=== PATIENT | male | born 1950 | race Caucasian/White ===

== ENCOUNTER 2025-05-21 05:38 | Inpatient (IN) ==
--- NOTE | 2025-04-29 12:04 | PAT Medication Instructions ---
Medication Instructions Date of Service April 29, 2025 Home Medications Vitamin D3 + K2 125 mg PO QAM biotin 5 mg capsule 5 mg PO QAM calcium citrate 630 mg PO QAM coQ10 (ubiquinol) 100 mg capsule 160 mg PO QAM hydrochlorothiazide 12.5 mg tablet 12.5 mg PO QAM krill oil 500 mg capsule 250 mg PO QAM magnesium 250 mg tablet 250 mg PO QAM risedronate 150 mg tablet 150 mg PO MONTHLY vitamin B complex 1 cap PO QAM ASK your surgeon for instructions risedronate 150 mg tablet 150 mg PO MONTHLY STOP taking 2 weeks before surgery (or as soon as possible if surgery is within 2 weeks) Vitamin D3 + K2 125 mg PO QAM biotin 5 mg capsule 5 mg PO QAM coQ10 (ubiquinol) 100 mg capsule 160 mg PO QAM krill oil 500 mg capsule 250 mg PO QAM DO NOT take the morning of surgery calcium citrate 630 mg PO QAM hydrochlorothiazide 12.5 mg tablet 12.5 mg PO QAM magnesium 250 mg tablet 250 mg PO QAM vitamin B complex 1 cap PO QAM MORNING OF SURGERY: NOTHING TO EAT OR DRINK AFTER MIDNIGHT Other Notes If you have any questions please call us at [phone] or [phone] or [phone] or [phone]
--- NOTE | 2025-04-30 11:33 | Anesthesiology Consultation ---
Date of Service April 30, 2025 Assessment & Plan (1) Encounter for pre-operative examination: - Infectious disease screening: Per assessment on 04/30/25- No known recent infectious disease contacts or current infectious disease symptoms. - Outpatient joint assessment: Pt currently scheduled for inpatient pathway. If surgeon requests review for outpatient joint pathway, patient is not recommended candidate for outpatient joint program from anesthesia standpoint based on available information. - Abnormal Preop CXR: Done 04/30/25. CXR notes "moderate cardiomegaly with mild pulmonary vascular congestion." Note written to PCP regarding preop CXR > Awaiting CXR response + surgeon-ordered PCP clearance (Dr. Mireles). Patient is otherwise acceptable risk for surgery. Chart Review Chart Review: Patient seen in Pre Admission Testing Teaching & Discussion Pre-Anesthesia Teaching/Discussion Notes: Instructed NPO after midnight before surgery,except medications with 15 cc of water. Medication instructions provided according to the PAT guidelines. History Surgery Operation Date: 05/21/25 13:20 Proposed Procedures p Right Total Knee Arthroplasty - Miguel Samuel MD Height/Weight Height: 5 ft 6 in Weight: 86.2 kg Allergies Allergy/AdvReac Type Severity Reaction Status Date / Time alendronate sodium AdvReac Jaw pain Verified 04/30/25 14:06 [From Fosamax] doxycycline AdvReac Dizziness Verified 04/30/25 14:05 Medications Home Medications Medication Instructions Recorded Confirmed Last Taken Vitamin D3 + K2 125 mg PO QAM 04/29/25 04/29/25 Unknown biotin 5 mg capsule 5 mg PO QAM 04/29/25 04/29/25 Unknown calcium citrate 630 mg PO QAM 04/29/25 04/29/25 Unknown coQ10 (ubiquinol) 100 mg capsule 160 mg PO QAM 04/29/25 04/29/25 Unknown hydrochlorothiazide 12.5 mg tablet 12.5 mg PO QAM 04/29/25 04/29/25 Unknown krill oil 500 mg capsule 250 mg PO QAM 04/29/25 04/29/25 Unknown magnesium 250 mg tablet 250 mg PO QAM 04/29/25 04/29/25 Unknown risedronate 150 mg tablet 150 mg PO MONTHLY 04/29/25 04/29/25 Unknown vitamin B complex 1 cap PO QAM 04/29/25 04/29/25 Unknown Past Medical History Medical History 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 History of acoustic neuroma s/p surgery ~1998; no current issues History of mai b/l LE; result of accident (1979); no surgeries; no current issues Osteoarthritis Osteopenia Prostate cancer surveillance at this time Exercise / Class Metabolic Activity II 4-5 Yardwork/Stairs/Walk up hill (one FS: No CP, no SOB) Past Family History Family History Other No family history of adverse response to anesthesia Past Surgical History Surgical History H/O brain surgery acoustic neuroma ~1998 H/O elbow surgery Left; plate and screws placed History of bunionectomy R History of colonoscopy Past Anesthesia History No Hx of Anesthesia Complications and No Family Hx of Anesthesia Complications History of PONV No Hx of PONV and No Hx of Motion Sickness Social History Smoking Status: Never smoker Do You Dip or Chew Tobacco: No Hx Alcohol Use: Yes Alcohol type: wine and hard liquor alcohol intake frequency: a few times a month Hx Substance Use: No Review of Systems Patient denies chest pain, shortness of breath, dyspnea on exertion, fever, chills, cough, wheezing. Physical Exam Vital Signs BP101/50 P 69 TEMP 97.6 SP02 95%RA RESP 16 Physical Full cervical extension range of motion. Full TMJ range of motion. TMD 3 finger breaths Mallampati Score II Dentition: intact, + cap Lungs: clear throughout to auscultation Cardiac: regular rate and rhythm, no murmurs noted Spine: normal Carotid arteries: negative bruit Extremities: no LE edema Lab Results Anesthesia Preop Results Results Anesthesia Widget: WBC 7.77 K/ul (4.8-10.8) 04/30/25 Hgb 16.6 g/dl (14.0-18.0) 04/30/25 Hct 47.2 % (42.0-52.0) 04/30/25 Plt 192 K/uL (130-400) 04/30/25 Na 137 mmol/L (136-145) 04/30/25 K 3.9 mmol/L (3.5-5.1) 04/30/25 Cl 101 mmol/L (98-107) 04/30/25 CO2 31 mmol/L (21-32) 04/30/25 BUN 25 mg/dl (6-23) H 04/30/25 Creat 1.00 mg/dl (0.6-1.4) 04/30/25 Glucose Level 113 mg/dl (70-99(Fasting)) H 04/30/25 PT 10.7 Seconds (9.0-12.0) 04/30/25 PTT 27 Seconds (21-31) 04/30/25 INR 1.0 (0.9-1.1) 04/30/25 Urine Color Yellow 04/30/25 Urine Appearance Clear (Clear) 04/30/25 Urine pH 5.0 (4.5-7.5) 04/30/25 Urine Specific [place] 1.021 (1.000-1.030) 04/30/25 Urine Protein Negative (Negative) 04/30/25 Urine Glucose (UA) Negative (Negative) 04/30/25 Urine Ketones Negative (Negative) 04/30/25 Urine Blood Negative (Negative) 04/30/25 Urine Nitrite Negative (Negative) 04/30/25 Urine Bilirubin Negative (Negative) 04/30/25 Urine Urobilinogen Negative (Negative) 04/30/25 Urine Leukocyte Esterase Trace (Negative) H 04/30/25 Urine WBC (Auto) 0-5 /hpf (0-5) 04/30/25 Urine RBC (Auto) 0-2 /hpf (0-2) 04/30/25 Urine Hyaline Casts (Auto) 0-2 /lpf (0-2) 04/30/25 Urine Epithelial Cells (Auto) 0-2 /hpf (0-2) 04/30/25 Urine Bacteria (Auto) None Seen (None Seen) 04/30/25 Blood Type A Positive 04/30/25 Antibody Screen NEGATIVE 04/30/25 Testing Electrocardiogram Date: 04/22/25 SR at 72bpm. Low voltage in precordial leads. RSR (V1)- nondiagnostic. Chest X-Ray Date: 04/30/25 FINDINGS: There is moderate cardiomegaly with mild pulmonary vascular congestion. No consolidation or pleural effusion. IMPRESSION: Mild CHF.
--- NOTE | 2025-05-19 19:26 | History & Physical Report ---
Date of Service May 19, 2025 Assessment & Plan (1) Osteoarthritis of right knee: Plan: Right knee osteoarthritis end-stage lateral compartment with bone loss. Plan is for right total knee arthroplasty with Hulafrog PSI CT cutting guides. Probable stemmed tibial component possible constrained polyethylene. Osteoarthritis type: primary Qualified Code(s): M17.11 - Unilateral primary osteoarthritis, right knee History of Present Illness Chief Complaint: Chronic right knee pain Primary Care Provider: NO PCP 74-year-old male with chronic right knee pain failed conservative management. Patient denies headaches, sweats, fevers, chills, double vision, blurred vision, cough, sore throat, dysphagia, chest pain, sob, wheezing, n/v/d/c, numbness, tingling, fatigue, urinary symptoms, mood disorders. ROS positive for use of CPAP, osteoarthritis including stiffness and low back pain, prostate cancer. Allergies Allergy/AdvReac Type Severity Reaction Status Date / Time alendronate sodium AdvReac Jaw pain Verified 04/30/25 14:06 [From Fosamax] doxycycline AdvReac Dizziness Verified 04/30/25 14:05 Home Medications Medication Instructions Recorded Confirmed Type Vitamin D3 + K2 125 mg PO QAM 04/29/25 04/29/25 History biotin 5 mg capsule 5 mg PO QAM 04/29/25 04/29/25 History calcium citrate 630 mg PO QAM 04/29/25 04/29/25 History coQ10 (ubiquinol) 100 mg capsule 160 mg PO QAM 04/29/25 04/29/25 History hydrochlorothiazide 12.5 mg tablet 12.5 mg PO QAM 04/29/25 04/29/25 History krill oil 500 mg capsule 250 mg PO QAM 04/29/25 04/29/25 History magnesium 250 mg tablet 250 mg PO QAM 04/29/25 04/29/25 History risedronate 150 mg tablet 150 mg PO MONTHLY 04/29/25 04/29/25 History vitamin B complex 1 cap PO QAM 04/29/25 04/29/25 History Past Med/Surg History Problem List (Updated 05/19/25 @ 19:24 by Miguel Samuel MD) Osteoarthritis of right knee Encounter for pre-operative examination Medical History History of mai b/l LE; result of accident (1979); no surgeries; no current issues Prostate cancer surveillance at this time 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 History of acoustic neuroma s/p surgery ~1998; no current issues Osteoarthritis Osteopenia Surgical History History of bunionectomy R History of colonoscopy H/O elbow surgery Left; plate and screws placed H/O brain surgery acoustic neuroma ~1998 Family History Other No family history of adverse response to anesthesia Social History Smoking Status: Never smoker Second Hand Exposure: No; Do You Dip or Chew Tobacco: No; Tobacco Cessation Education Requested by Patient: No Hx Alcohol Use: Yes Alcohol type: wine and hard liquor Hx Substance Use: No Preferred Language: Pakistani Communication Ability: Effective Hand Box Coverer Required: No Beliefs That Will Affect Care: None Current Living Situation: Spouse Other Information That Helps Us Care for You: No Feels Safe at Home: Yes Safety Concerns: Feels Safe At This Time Assistive Devices: CPAP and Glasses Review of Systems All systems reviewed & are unremarkable except as noted in HPI & below Physical Exam Constitutional: WD/WN, vitals as above Respiratory: normal respiratory effort; no respiratory distress Cardiovascular: Rate/Rhythm: regular rate and regular rhythm Musculoskeletal: Right knee with 0 to 90 degrees of active range of motion with a valgus knee lateral joint line tenderness and crepitation. Distal circulation sensory motor exam intact. Antalgic gait no assistive device. Skin: no rashes, warm and dry Neurologic: normal touch/pain/proprioception Psychiatric: A+Ox3, euthymic affect Results & Data Diagnostic Findings Radiographs demonstrate severe right knee osteoarthritis with bone loss in the lateral compartment
[2025-05-21] MEDS: LR 60ML/HR IV SCH (06:19)
[2025-05-21] MEDS: LR 500ML BOLUS, THEN 15ML/HR IV SCH (06:20)
[2025-05-21] MEDS: ACETAMINOPHEN 500 MG TAB PO SCH ×2 (06:22→13:55)
[2025-05-21] MEDS: METOCLOPRAMIDE HCL 10 MG TABLET PO SCH (06:23)
[2025-05-21] MEDS: FAMOTIDINE 20 MG TAB PO SCH (06:23)
[2025-05-21] MEDS: GABAPENTIN 300 MG CAP PO SCH (06:23)
[2025-05-21] MEDS: CeleBREX 200 MG CAP PO SCH (06:23)
[2025-05-21] MEDS ORDERED: ROPIVACAINE 0.5% 5 MG/ML 30 ML VIAL ONE (06:25)
[2025-05-21] MEDS: dexAMETHasone**PF** 10 MG/ML VIAL IV SCH (06:25)
[2025-05-21] MEDS ORDERED: BUPIVACAINE 0.5 % 5 MG/1 ML PF 10ML VIAL ONE (06:25)
[2025-05-21] MEDS ORDERED: MIDAZOLAM HCL 1 MG/ML 2ML VIAL ONE (06:29)
[2025-05-21] MEDS ORDERED: ONDANSETRON INJ 2 MG/ML 2 ML VIAL IV PRN ×2 (06:48→11:39)
[2025-05-21] MEDS ORDERED: ATROPINE SULFATE 0.1 MG/ML 10ML SYR IV PRN (06:48)
[2025-05-21] MEDS ORDERED: ONDANSETRON INJ 2 MG/ML 2 ML VIAL ONE (06:57)
[2025-05-21] MEDS ORDERED: PROPOFOL IV EMULSION 10 MG/ML 20 ML VIAL IV ONE ×3 (06:57→09:59)
[2025-05-21] MEDS: TRANEXAMIC ACID 1,000 MG **IV Pre-op IV SCH (07:09)
--- NOTE | 2025-05-21 07:10 | History & Physical Bridge Note ---
Date of Service May 21, 2025 History & Physical Bridge Note I have examined the patient, reviewed the History & Physical and in the interval since the performance of the History & Physical I have noted the following changes of clinical significance: no changes noted
[2025-05-21] MEDS ORDERED: PHENYLEPHRINE 100MCG/ML 5ML SYR ONE (07:35)
[2025-05-21] MEDS: ROPIVACAINE 0.5% HCL/PF 246 MG, Ketorolac (*for OR use only*) 30 MG in SODIUM CHLORIDE ... INFIL SCH (07:57)
[2025-05-21] MEDS: ORTHO JOINT ANESTHETIC ONE (07:57)
[2025-05-21] MEDS ORDERED: ePHEDrine sulfate 50 MG/5 ML SYR ONE (08:43)
--- NOTE | 2025-05-21 10:39 | Post Operative Brief Note ---
Immediate Post Op Note Date of Surgery May 21, 2025 Pre & Post Diagnosis Operation Date: 05/21/25 07:15 Pre-Op Diagnosis: Right Knee Degenerative Joint Disease Post-Op Diagnosis: Right Knee Degenerative Joint Disease I identified the patient and participated in the time-out.: Yes Procedure Operation Date: 05/21/25 07:15 Actual Procedures p Right Total Knee Arthroplasty(Right), el and Acticoat superficial wound VAC application- Miguel Samuel MD Surgeon Miguel Samuel MD Teachers Assistant David WALLS Estimated Blood Loss 50 Findings Consistent with Post-Op Diagnosis Specimens Bone cuts Drains Hemovac Drain Anesthesia Type MAC Spinal Regional Disposition Disposition: Recovery Room Overlapping Procedure I was immediately available: during the entire case.
--- NOTE | 2025-05-21 10:59 | Operative Report ---
Post Operative Report Pre & Post Diagnosis Operation Date: 05/21/25 07:15 Pre-Op Diagnosis: Right Knee Degenerative Joint Disease, osteoarthritis Post-Op Diagnosis: Right Knee Degenerative Joint Disease, osteoarthritis I identified the patient and participated in the time-out.: Yes Procedure Operation Date: 05/21/25 07:15 Actual Procedures p Right Total Knee Arthroplasty(Right), application of el and Acticoat superficial wound VAC- Miguel Samuel MD Surgeon Miguel Samuel MD Agriculture Department Chair David WALLS Estimated Blood Loss 50 Findings Consistent with Post-Op Diagnosis Specimens Bone cuts Drains 2 Hemovac Anesthesia Type MAC Spinal Regional Complications none Disposition Disposition: Recovery Room Indications 74 male with chronic right knee osteoarthritis with valgus deformity and bone loss lateral compartment [id number] femoral and tibial side with medial collateral ligament laxity. Description of Procedure Patient taken to the operating room the size under spinal MAC regional block anesthesia. Patient was placed supine on the operating table. A pneumatic tourniquet was placed about the right upper thigh. The right lower extremity was prepped and draped in sterile fashion. Knee exam demonstrated valgus alignment and at least 20 degrees with medial collateral ligament laxity with valgus stress and no pseudolaxity with varus stress with no AP instability and a large effusion with no flexion contracture and flexion to 95 degrees. The right leg was elevated exsanguinated with an Esmarch bandage and pneumatic tourniquet was raised to 300 millimeters of mercury. Skin incised sharply in longitudinal fashion. Subcutaneous flaps elevated. Incision was made through the medial retinaculum extending up in the mid third of the quadriceps tendon and down to the medial tibial tubercle. Intra-articular findings demonstrated severe osteoarthritis in the lateral compartment and moderately severe in the patellofemoral joint with bone loss on the femoral condyle and tibial plateau with eburnated bone and grade 3 patellofemoral osteoarthritis with patellofemoral osteophytes. The Arkamin total knee arthroplasty system was used. To expose the knee the infrapatellar fat pad was resected. The meniscal remnants and cruciate ligaments were resected. The anterior fat pad over the femur in the area of the location of the anterior flange of the femoral component was resected. The lateral synovial bands were released. The femur was exposed. The custom CT scan generated PSI guide was placed over the femur and appropriately adjusted position with good fit. It was pinned in position. The distal femoral cut was made in the drill holes in the femoral condyles for the guide were placed in the appropriate external rotation matching the epicondylar axis. The distal femoral cut was made with the oscillating saw. The 4-in-1 cutting block was adjusted for external rotation pinned in position and the anterior posterior and chamfer cuts were made. The knee was extended and a subperiosteal peel lateral release was performed around the patella. Patella width was measured and width was reproduced using a freehand cut technique and a asymmetric 35 mm patella component. The 3 drill holes were made. Trial implant fit appropriately. The CT generated tibial cutting guide was positioned and the alignment anibal was appropriate and after pinning this position the cut was made. A lamina alkylation operator was used and the flexion extension gaps were addressed.. Lateral capsular IT band off the tibia popliteus tendon release and resection of the fibular collateral ligament releases were all required. All posterior osteophytes removed. All meniscal remnants were resected. The tibia CT guide for the drill and punch was positioned and placed in maximal external rotation and pinned in position. The drill and punch for stem was used. The femoral CT fabricated size 6 femoral trial was positioned on the femur with a good fit centered and the femoral notch cut was made. Drill holes for the pegs were performed. Trial tibial inserts were placed and I felt initially that a size 13 gave appropriate balance through full motion but there is still some laxity medially which I felt could be corrected with that TS constrained component. Patella tracking was assessed. The patella tracked centrally.. The trial components were then removed and the orthomix anesthetic cocktail was injected per protocol. The knee was then copiously irrigated with pulsatile lavage saline solution. Final components were then cemented with Refobacin cement. Xperience irrigation placed over metal compoments prior to polyethylene insertion. Final components were triathlon size 6 right posterior stabilized femoral component with fixation pegs and a size 5 universal tibial baseplate with a 12 mm diameter 50 mm length cemented stem and a 35 mm X.3 polyethylene asymmetrical patella. I tried to get the tibial polyethylene in place for I was having some difficulty so we displaced a trial in position and allowed the cement to cure fully with the knee in extension.. After the cement cured further pulsatile lavage irrigation was then performed with Xperience. We assessed the tibial polyethylene and there was some thinning of the fixation wire so this was not able to be used and we did another trial and it was felt that we could upsized to a 16 still with full extension with no hyperextension and full flexion with good stability so we went ahead and inserted the size 16 mm thick 5 TS X.3 polyethylene tibial insert. The stabilization bar was placed into the stem. The knee was taken through range of motion was full extension and flexion to 130 degrees and no instability through full range of motion and the patella tracked centrally. The tourniquet was let down and hemostasis obtained electrocautery and 2 Hemovac drains were brought out laterally. Further irrigation was Xperience performed. The quadriceps tendon and medial retinaculum were closed with #2 FiberWire [id number] sutures along the medial retinaculum medial side of the patella and distal quadriceps tendon and an additional [id number] suture at the apex of the quadriceps tendon split proximally and an additional [id number] suture at the level of the tibial polyethylene in the patella tendon. a 0 running locking STRATAFIX suture was placed starting at the proximal split in the quadriceps tendon extending down to the inferior pole the patella and then below that level [id number] #1 Yonas ryl sutures were utilized to repair the medial retinaculum to the patella tendon. The knee was taken through full range of motion and the repair was secure. Knee range of motion was 0 to 130 degrees. The subcutaneous tissues were closed with 2-0 Vicryl sutures. Skin was closed with surgical pieter. A el and Acticoat superficial wound VAC was applied. The patient tolerated the procedure well. David WALLS was my physician rehabilitation assistant who participated as heel sprayer first and was involved in all aspects of the procedure including patient positioning prepping and draping,leg positioning ,soft tissue retraction and instrument management and participated in the closing and application of superficial wound VAC and will participate in postoperative care of the patient. The patient tolerated the procedure well. I attest to the content of the Intraoperative Record and any orders documented therein. Any exceptions are noted below.
--- NOTE | 2025-05-21 11:15 | XRay Report ---
XR knee RT 1 or 2V routine CLINICAL HISTORY: Surgical Post Op COMPARISON: None FINDINGS: Right knee prosthesis shows no hardware complication. There is expected soft tissue gas. P ostoperative drain is present. Skin pieter are present. IMPRESSION: Unremarkable postoperative exam. ACT 112: Negative or not required by law. Electronically signed by: Nas Bhatt M.D. 05/21/2025 11:14 AM
--- NOTE | 2025-05-21 11:33 | Anesthesiology Progress Note ---
Date of Service May 21, 2025 Anesthesia Post Procedure Vital Signs Vital Signs: Temp Pulse Pulse Resp BP Pulse Ox O2 Del Method 05/21/25 11:15 86 16 116/71 96 Room Air 05/21/25 11:00 88 13 110/71 94 Room Air 05/21/25 10:50 97.7 F 85 13 101/62 96 Room Air 05/21/25 10:40 89 17 107/70 94 Room Air 05/21/25 10:32 97.0 F L 93 H 18 93/63 L 95 Nasal Cannula 05/21/25 05:47 98.1 F 68 18 129/82 97 Room Air O2 Flow Rate 05/21/25 11:15 2 05/21/25 11:00 2 05/21/25 10:50 2 05/21/25 10:40 2 05/21/25 10:32 2 05/21/25 05:47 Pain Intensity Right Knee: Pain Intensity: 4 Transfer of Care Handoff Completed per policy Notes Mental Status: alert / awake / arousable and participated in evaluation Patient Amnestic to Procedure: Yes Nausea / Vomiting: adequately controlled Pain: adequately controlled Airway Patency, RR, SpO2: stable & adequate BP & HR: stable & adequate Hydration State: stable & adequate Neuraxial Anesthesia: was administered and sensory block is resolving Anesthetic Complications: no major complications apparent and Pt Satisfied with anesthetic care
[2025-05-21] MEDS ORDERED: METOCLOPRAMIDE HCL INJ 5 MG/ML 2 ML VIAL IV PRN (11:39)
[2025-05-21] MEDS ORDERED: diphenhydrAMINE Capsule 25 MG CAP PO PRN (11:39)
[2025-05-21] MEDS ORDERED: RISEDRONATE 150 MG PO SCH (11:39)
[2025-05-21] MEDS ORDERED: NALOXONE HCL 0.4 MG/1 ML VIAL/CARP IV PRN (11:39)
[2025-05-21] MEDS ORDERED: MAGNESIUM HYDROXIDE SUSP 30 ML UDC PO PRN (11:39)
[2025-05-21] MEDS ORDERED: HYDROmorphone INJ 0.5 MG/0.5 ML SYR IV PRN (11:39)
[2025-05-21] MEDS ORDERED: TAMSULOSIN HCL 0.4 MG CAP PO PRN (11:39)
[2025-05-21] MEDS ORDERED: ALUMINUM/MAGNESIUM SUSP 30 ML UDC PO PRN (11:39)
[2025-05-21] MEDS: SODIUM CHLORIDE 0.9% 1,000 ML IV SCH (12:08)
--- NOTE | 2025-05-21 13:30 | Hospitalist Consultation ---
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 He presented for right total knee arthroplasty with Dr. Samuel on 05/21/2025. EBL 50 cc and there were no complications noted. #Right knee osteoarthritis - s/p right total knee arthroplasty - Pain control, DVT prophylaxis, activity level, discharge planning per primary team - Requiring some supplemental O2 postoperatively - likely from anesth esia/atelectasis. Encourage incentive spirometer Q1HWA - Mild tachycardia - EKG obtained and showed NSR with occasional PVCs - Follow CBC and BMP with a.m. labs #LE swellingcontinue HCTZ 12.5 mg daily #OSACPAP HS #Hypomagnesemiacontinue magnesium oxide supplementation daily #Osteopeniacontinue vitamin D3, continue risedronate outpatient #Essential tremor-no acute issues, does not take medication but has propranolol at home as needed which he has never used Hospital medicine will continue to follow. Please reach out with any questions or concerns. Reviewed outpatient records Updated and daughter at bedside Supervising Physician Co-Signing Physician Notes PA Supervision Note: I personally saw and examined the patient. I verified all enamorado points and agree with TITI Mora with the following exceptions and/or additions: S-patient here recovering from a right TKA. He denies palpitations but was noted to have a high heart rate earlier by nursing staff and had an ECG which showed sinus rhythm with frequent PACs. He has minimal pain as he had a spinal anesthesia. Denies chest pains or shortness of breath, he does have an essential tremor but does not take his as needed propranolol History and ROS otherwise reviewed as above O- Vitals reviewed Gen: AAOx3, NAD HEENT: Anicteric sclerae, EOMI CV: RRR with occasional ectopy no mgr nl S1S2 Pulm: CTAB no wcr Abd: +BS soft NT ND no masses or hernias Ext: RLE with dressing and ice pack in place Skin: No rashes, warm/dry Neuro: Full strength throughout A/K-77-rn[age]-old male with right TKA, admitted for postop observation. 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 He presented for right total knee arthroplasty with Dr. Samuel on 05/21/2025. Per review of operative report, EBL was listed as 50 cc, and there were no complications noted. Per review of patient's vitals postop, he has been mildly tachycardic in the [id number] and requiring some supplemental O2; vitals otherwise stable. Patient reports that his pain is 3/10 at time of consult. He reports he is eating and drinking okay since the procedure, and has no new complaints at this time. He denies headache, dizziness, chest pain, heart palpitations, shortness of breath, abdominal pain, nausea, urinary symptoms, paresthesias. He does not use supplemental oxygen at baseline, but does wear CPAP at night. Allergies Allergy/AdvReac Type Severity Reaction Status Date / Time alendronate sodium AdvReac Jaw pain Verified 05/21/25 05:37 [From Fosamax] doxycycline AdvReac Dizziness Verified 05/21/25 05:37 Home Medications Medication Instructions Recorded Confirmed Type Vitamin D3 + K2 125 mg PO QAM 04/29/25 05/21/25 History biotin 5 mg capsule 5 mg PO QAM 04/29/25 05/21/25 History calcium citrate 630 mg PO QAM 04/29/25 05/21/25 History coQ10 (ubiquinol) 100 mg capsule 160 mg PO QAM 04/29/25 05/21/25 History hydrochlorothiazide 12.5 mg tablet 12.5 mg PO QAM 04/29/25 05/21/25 History krill oil 500 mg capsule 250 mg PO QAM 04/29/25 05/21/25 History magnesium 250 mg tablet 250 mg PO QAM 04/29/25 05/21/25 History risedronate 150 mg tablet 150 mg PO MONTHLY 04/29/25 05/21/25 History vitamin B complex 1 cap PO QAM 04/29/25 05/21/25 History acetaminophen 500 mg tablet 1,000 mg (2 x 500 mg) PO Q8H #90 05/21/25 Rx (Tylenol Extra Strength) tabs aspirin 81 mg tablet,delayed 81 mg PO BID #60 tabs 05/21/25 Rx release cefadroxil 500 mg capsule 500 mg PO Q12H #28 caps 05/21/25 Rx celecoxib 200 mg capsule (Celebrex) 200 mg PO Q12H #60 caps 05/21/25 Rx oxycodone 5 mg tablet 5 mg PO Q4H PRN pain #30 tabs 05/21/25 Rx Patient History Medical History History of mai b/l LE; result of accident (1979); no surgeries; no current issues Prostate cancer surveillance at this time 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 History of acoustic neuroma s/p surgery ~1998; no current issues Osteoarthritis Osteopenia Surgical History History of bunionectomy R History of colonoscopy H/O elbow surgery Left; plate and screws placed H/O brain surgery acoustic neuroma ~1998 Family History Other No family history of adverse response to anesthesia Social History Smoking Status: Never smoker Second Hand Exposure: No; Do You Dip or Chew Tobacco: No; Tobacco Cessation Education Requested by Patient: No Hx Alcohol Use: Yes Alcohol type: wine and hard liquor Hx Substance Use: No Preferred Language: [place]an Communication Ability: Effective [employer]. [employer] Required: No Beliefs That Will Affect Care: None Current Living Situation: Spouse Other Information That Helps Us Care for You: No Feels Safe at Home: Yes Safety Concerns: Feels Safe At This Time Assistive Devices: Cane, CPAP and Walker Review of Systems Review of Systems: All systems reviewed & are unremarkable except as noted in Subjective Physical Exam Physical Exam: General: No acute distress, nondiaphoretic, well-developed, well-nourished. Skin: The skin was without rashes, erythema, edema, or bruising. Cardiac: Regular rate and rhythm without murmurs gallops or rubs. Pulm: Clear to auscultation bilaterally without wheezes, rales or rhonchi. No retractions or accessory muscle use. Abdominal: Positive bowel sounds x 4. Soft, nontender, without masses or organomegaly. No guarding or rebound tenderness. Neuro: A&O x3. No focal neurological deficits. MSK: Right LE in postop dressing clean dry intact with drain present. Normal motor and sensory function. Results & Data Results & Data Vital Signs (Past 12 Hours) Vital Signs Temp Pulse Pulse Resp BP Pulse Ox O2 Del Method 05/21/25 13:23 95 H 16 127/77 96 Nasal Cannula 05/21/25 12:34 97.5 F L 102 H 16 117/73 95 Nasal Cannula 05/21/25 12:03 97.5 F L 93 H 16 110/69 95 Nasal Cannula 05/21/25 11:56 Nasal Cannula 05/21/25 11:40 97.7 F 91 H 17 121/73 2 L Nasal Cannula 05/21/25 11:15 86 16 116/71 96 Room Air 05/21/25 11:00 88 13 110/71 94 Room Air 05/21/25 10:50 97.7 F 85 13 101/62 96 Room Air 05/21/25 10:40 89 17 107/70 94 Room Air 05/21/25 10:32 97.0 F L 93 H 18 93/63 L 95 Nasal Cannula 05/21/25 05:47 98.1 F 68 18 129/82 97 Room Air O2 Flow Rate 05/21/25 13:23 3 05/21/25 12:34 05/21/25 12:03 05/21/25 11:56 2 05/21/25 11:40 05/21/25 11:15 2 05/21/25 11:00 2 05/21/25 10:50 2 05/21/25 10:40 2 05/21/25 10:32 2 05/21/25 05:47 Diagnostic Findings Reviewed knee x-ray Reviewed EKG PG Care Time/CCT Total # of Minutes Spent Total Time Spent with Patient: Total time spent is greater than 50% in coordination of care (as documented) at patient's floor/unit and/or counseling patient: Coding Level of Care Code 76067 IN/OBS CONSULT LVL 4,60M Diagnoses Primary osteoarthritis of right knee M17.11 Osteoarthritis type: primary Hypertension I10 ADOLFO on CPAP G47.33 (1) Osteoarthritis of right knee Osteoarthritis type: primary Qualified Code(s): M17.11 - Unilateral primary osteoarthritis, right knee
[2025-05-21] MEDS ORDERED: POLYETHYLENE (MIRALAX) 17 GM PACK PO PRN (14:29)
[2025-05-21] MEDS: TRANEXAMIC ACID / 0.7% NACL 1,000 MG/100 ML BAG IV SCH (17:11)
[2025-05-21] MEDS: DOCUSATE SODIUM 100 MG CAP PO SCH (20:18)
[2025-05-21] MEDS: SENNA 8.6 MG TAB PO SCH (20:18)
[2025-05-22] MEDS: KETOROLAC TROMETHAMINE 15 MG/ML VIAL IV PRN (06:38)
[2025-05-22 07:40] LABS: Hematocrit (blood only) 36.4 % (42.0-52.0); Hemoglobin 12.4 g/dl (14.0-18.0); Mean Corpuscular Hemoglobin 30.2 pg (25.0-34.0); Mean Corpuscular Volume 88.8 fL (80.0-100.0); Platelet Count 162 K/uL (130-400); RDW Standard Deviation 41.3 fL (36.4-46.3); Red Blood Count 4.10 M/uL (4.70-6.10); White Blood Count 12.06 K/ul (4.8-10.8)
--- NOTE | 2025-05-22 08:03 | Orthopedic Progress Note ---
Date of Service May 22, 2025 Assessment & Plan (1) Osteoarthritis of right knee: Plan: Postop day 1 total knee replacement for severe lateral compartment osteoarthritis with bone loss. More than typical blood loss show will admit patient and observe overnight and take Hemovac off of suction monitor drainage and repeat labs tomorrow. Right knee osteoarthritis end-stage lateral compartment with bone loss. Plan is for right total knee arthroplasty with [employer] PSI CT cutting guides. Probable stemmed tibial component possible constrained polyethylene. (2) Anemia: Plan: Having more than typical blood loss likely due to the severity of the knee arthritis and releases required. Will admit and observe overnight. Currently hemodynamically stable. Admission and Anticipated Discharge Date Admission Date: May 21, 2025 Subjective Having some pain since nerve block wore off but tolerable. Review of Systems Review of Systems: No chest pain shortness of breath, no lightheadedness or dizziness. Physical Exam Musculoskeletal: Dressing dry and intact, independent straight leg raise, distal CSM intact. Results & Data Vital Signs (Past 12 Hours) Vital Signs Temp Pulse Resp BP Pulse Ox O2 Del Method 05/22/25 06:57 36.4 C L 70 17 105/68 94 Room Air 05/22/25 02:55 37.1 C 63 18 103/63 94 Room Air 05/21/25 23:26 36.9 C 82 18 97/54 L 93 Room Air Diagnostic Findings Satisfactory aligned total knee replacement (1) Osteoarthritis of right knee Osteoarthritis type: primary Qualified Code(s): M17.11 - Unilateral primary osteoarthritis, right knee (2) Anemia Anemia type: other cause Other causes of anemia: acute posthemorrhagic Qualified Code(s): D62 - Acute posthemorrhagic anemia
[2025-05-22 08:05] LABS: Anion Gap 4.0 (3-11); Blood Urea Nitrogen 24.0 mg/dl (6-23); Calcium 8.0 mg/dl (8.6-10.3); Carbon Dioxide 26.0 mmol/L (21-32); Chloride 108.0 mmol/L (98-107); Creatinine Clr Calc Pharmacy 88.2 ml/min; Glucose 132.0 mg/dl (70-99(Fasting)); Potassium 4.2 mmol/L (3.5-5.1); Sodium 138.0 mmol/L (136-145)
[2025-05-22] MEDS ORDERED: NON-FORMULARY MEDICATION (Calcium Citrate 250 mg calcium Tablet) PO SCH (09:00)
[2025-05-22] MEDS ORDERED: NON-FORMULARY MEDICATION (Biotin 5 mg Capsule) PO SCH (09:00)
[2025-05-22] MEDS ORDERED: VITAMIN D3 PO SCH (09:00)
[2025-05-22] MEDS ORDERED: K2 PO SCH (09:00)
[2025-05-22] MEDS ORDERED: NON-FORMULARY MEDICATION (Coq10 (Ubiquinol) 100 mg Capsule) PO SCH (09:00)
[2025-05-22] MEDS: dexAMETHasone 10 MG in SYRINGE 0 ML IV SCH (09:05)
--- NOTE | 2025-05-22 09:12 | Hospitalist Progress Note ---
Date of Service May 22, 2025 Assessment & Plan (1) Osteoarthritis of right knee: (2) Hypertension: (3) ADOLFO on CPAP: Plan Chano is a pleasant 74-year-old male with PMH of HTN, ADOLFO on CPAP, OA, prostate cancer, essential tremor, and history of acoustic neuroma with subsequent herson fness in his left ear. He presented for right total knee arthroplasty with Dr. Samuel on 05/21/2025. EBL 50 cc and there were no complications noted. #Right knee osteoarthritis - s/p right total knee arthroplasty - Pain control, DVT prophylaxis, activity level, discharge planning per primary team - Acute blood loss anemia with Hgb 16.6 -> 12.4. Total Hemovac output 805 cc. Hemovac now removed. More than typical blood loss likely secondary to severity of knee arthritis and releases required - Mild leukocytosis of 12 is likely secondary to steroids. Afebrile, no signs of acute infection - No longer requiring supplemental O2. Mild tachycardia has now resolved with heart rate remaining in 80s - Continue to monitor and trend CBC #LE swellingcontinue HCTZ 12.5 mg daily #OSACPAP HS #Hypomagnesemiacontinue magnesium oxide supplementation daily #Osteopeniacontinue vitamin D3, continue risedronate outpatient #Essential tremor-no acute issues, does not take medication but has propranolol at home as needed which he has never used Hospital medicine will continue to follow. Please reach out with any questions or concerns. Updated and daughter at bedside Admission and Anticipated Discharge Date Admission Date: May 22, 2025 Supervising Physician Co-Signing Physician Notes PA Supervision Note: I did not personally see or examine the patient today, but I verified all enamorado points of TITI Mora's assessment and plan with the following exceptions/additi ons: None Subjective Patient seen and evaluated at bedside while eating lunch with his and daughter present. He reports feeling well overall. He slept fairly well overnight, waking up a few times due to tightness in his right knee. He reports his pain is well-controlled at this time. He is well tolerating his diet. He is passing gas but has not yet had a BM. We discussed to results of his blood work from this morning and the plan for continued inpatient stay overnight for further monitoring of his hemoglobin level. He denies any complaints or concerns at this time. Physical Exam Physical Exam: General: No acute distress, nondiaphoretic, well-developed, well-nourished. Skin: Warm, dry. Cardiac: Regular rate and rhythm without murmurs gallops or rubs. Pulm: Clear to auscultation bilaterally without wheezes, rales or rhonchi. Normal respiratory effort. 94% on room air. Abdominal: Soft, nontender, nondistended. Bowel sounds present. Neuro: A&O x3. No focal neurological deficits. MSK: Right LE in postop dressing clean dry intact, drain present. Normal motor and sensory function. Results & Data Results & Data Vital Signs (Past 12 Hours) Vital Signs Temp Pulse Resp BP Pulse Ox O2 Del Method 05/22/25 08:46 98.1 F 82 17 110/67 94 Room Air 05/22/25 06:57 97.5 F L 70 17 105/68 94 Room Air 05/22/25 02:55 98.8 F 63 18 103/63 94 Room Air 05/21/25 23:26 98.4 F 82 18 97/54 L 93 Room Air Laboratory Results Reviewed CBC Reviewed BMP PG Care Time/CCT Total # of Minutes Spent Total Time Spent with Patient: Total time spent is greater than 50% in coordination of care (as documented) at patient's floor/unit and/or counseling patient: Coding Level of Care Code 46171 SUB INP/OBS CARE 2/35MIN Diagnoses Primary osteoarthritis of right knee M17.11 Osteoarthritis type: primary Hypertension I10 ADOLFO on CPAP G47.33 (1) Osteoarthritis of right knee Osteoarthritis type: primary Qualified Code(s): M17.11 - Unilateral primary osteoarthritis, right knee
[2025-05-22] MEDS: hydroCHLOROthiazide 25 MG TAB PO SCH (09:18)
[2025-05-22] MEDS: VITAMIN B COMPLEX TAB PO SCH (09:19)
[2025-05-22] MEDS: ASPIRIN 81 MG ECTAB PO SCH (09:19)
[2025-05-22] MEDS: MAGNESIUM OXIDE 400 MG TAB PO SCH (09:19)
[2025-05-22] MEDS: MULTIVITAMIN TAB PO SCH (09:19)
[2025-05-22 15:26] VITALS: RESP 18
[2025-05-23 07:24] LABS: Hematocrit (blood only) 36.4 % (42.0-52.0); Hemoglobin 12.9 g/dl (14.0-18.0); Mean Corpuscular Hemoglobin 31.4 pg (25.0-34.0); Mean Corpuscular Volume 88.6 fL (80.0-100.0); Platelet Count 156 K/uL (130-400); RDW Standard Deviation 41.4 fL (36.4-46.3); Red Blood Count 4.11 M/uL (4.70-6.10); White Blood Count 11.05 K/ul (4.8-10.8)
[2025-05-23 07:53] VITALS: BP 127/73; TEMP 98.2; O2SAT 95
--- NOTE | 2025-05-23 07:59 | Orthopedic Progress Note ---
Date of Service May 23, 2025 Assessment & Plan (1) Osteoarthritis of right knee: Plan: Postop day 2 total knee replacement for severe lateral compartment osteoarthritis with bone loss. Hemodynamically stable and feels well and drainage was steady but decreased over time. Drain was discontinued. Discussed icing elevation and he is set up for in-home PT for 2 weeks and outpatient PT afterwards. He will follow-up in the office in 2 weeks with staple removal. Right knee osteoarthritis end-stage lateral compartment with bone loss. Plan is for right total knee arthroplasty with Between CT cutting guides. Probable stemmed tibial component possible constrained polyethylene. (2) Anemia: Plan: Having more than typical blood loss likely due to the severity of the knee arthritis and releases required. Will admit and observe overnight. Currently hemodynamically stable. Admission and Anticipated Discharge Date Admission Date: May 22, 2025 Subjective Some anterior knee pain. Review of Systems Review of Systems: No chest pain shortness of breath feels well. Physical Exam Musculoskeletal: Dressing changed Hemovac discontinued, there is little bit of a drainage around the drain site exit. Yanely holding suction well and intact and dry. Distal ci rculation sensorimotor exam intact. Independent straight leg raise. Results & Data Vital Signs (Past 12 Hours) Vital Signs Temp Pulse Pulse Resp BP Pulse Ox O2 Del Method 05/23/25 07:52 36.8 C 70 18 127/73 95 Room Air 05/22/25 23:24 36.6 C 76 18 134/84 100 Room Air Laboratory Results Pending (1) Osteoarthritis of right knee Osteoarthritis type: primary Qualified Code(s): M17.11 - Unilateral primary osteoarthritis, right knee (2) Anemia Anemia type: other cause Other causes of anemia: acute posthemorrhagic Qualified Code(s): D62 - Acute posthemorrhagic anemia
--- NOTE | 2025-05-23 08:42 | Hospitalist Progress Note ---
Date of Service May 23, 2025 Assessment & Plan (1) Osteoarthritis of right knee: (2) Hypertension: (3) ADOLFO on CPAP: Plan Chano is a pleasant 74-year-old male with PMH of HTN, ADOLFO on CPAP, OA, prostate cancer, essential tremor, and history of acoustic neuroma with subsequent herson fness in his left ear. He presented for right total knee arthroplasty with Dr. Samuel on 05/21/2025. EBL 50 cc and there were no complications noted. #Right knee osteoarthritis/acute blood loss anemia- s/p right total knee arthroplasty - Pain control, DVT prophylaxis, activity level, discharge planning per primary team - Acute blood loss anemia secondary to surgical intervention. Hgb stable, 12.4 -> 12.9 postop. Total Hemovac output 1,090 cc. Hemovac now removed. More than typical blood loss likely secondary to severity of knee arthritis and releases required - Mild leukocytosis of 12 -> 11 is likely secondary to steroids. Afebrile, no signs of acute infection - Vital signs stable #LE swellingcontinue HCTZ 12.5 mg daily #OSACPAP HS #Hypomagnesemiacontinue magnesium oxide supplementation daily #Osteopeniacontinue vitamin D3, continue risedronate outpatient #Essential tremor-no acute issues, does not take medication but has propranolol at home as needed which he has never used Patient is medically stable for discharge from hospital medicine's perspective. Hospital medicine will sign off at this time. Please reach out if any questions or concerns arise. Updated at bedside Admission and Anticipated Discharge Date Admission Date: May 22, 2025 Supervising Physician Co-Signing Physician Notes TITI Supervision Note: I did not personally see or examine the patient today, but I verified all enamorado points of TITI Mora's assessment and plan with the following exceptions/additions: None Subjective Patient seen and evaluated at bedside with his present. He has some right knee pain but reports his pain is controlled with medication. He feels well overall. He is well tolerating his diet, continues to pass gas postop. We discussed the results of his lab work this morning. He is medically stable for discharge. He reports Ortho plans on discharging him today. No additional complaints or concerns. Physical Exam Physical Exam: General: No acute distress, nondiaphoretic, well-developed, well-nourished. Skin: Warm, dry. Cardiac: Regular rate and rhythm without murmurs gallops or rubs. Pulm: Clear to auscultation bilaterally without wheezes, rales or rhonchi. Normal respiratory effort. 95% on room air. Abdominal: Soft, nontender, nondistended. Bowel sounds present. Neuro: A&O x3. No focal neurological deficits. MSK: Right LE in postop dressing clean dry intact, drain removed. Normal motor and sensory function. Results & Data Results & Data Vital Signs (Past 12 Hours) Vital Signs Temp Pulse Pulse Resp BP Pulse Ox O2 Del Method 05/23/25 07:52 98.2 F 70 18 127/73 95 Room Air 05/22/25 23:24 97.9 F 76 18 134/84 100 Room Air Laboratory Results Reviewed CBC PG Care Time/CCT Total # of Minutes Spent Total Time Spent with Patient: Total time spent is greater than 50% in coordination of care (as documented) at patient's floor/unit and/or counseling patient: Coding Level of Care Code 92783 SUB INP/OBS CARE 2/35MIN Diagnoses Primary osteoarthritis of right knee M17.11 Osteoarthritis type: primary Hypertension I10 ADOLFO on CPAP G47.33 (1) Osteoarthritis of right knee Osteoarthritis type: primary Qualified Code(s): M17.11 - Unilateral primary osteoarthritis, right knee
[2025-05-23 10:03] VITALS: PULSE 76
--- NOTE | 2025-05-24 06:15 | Electrocardiogram Report ---
Test Reason : Blood Pressure : */* mmHG Vent. Rate : 106 BPM Atrial Rate : 106 BPM P-R Int : 164 ms QRS Dur : 90 ms QT Int : 306 ms P-R-T Axes : 43 -26 87 degrees QTcB Int : 406 ms Sinus tachycardia with occasional Premature ventricular complexes Premature atrial complexes Nonspecific T wave abnormality Abnormal ECG No previous ECGs available Confirmed by Bridger Mckeon ([id number]) on 05/24/2025 6:15:32 AM Referred By: Miguel Samuel Confirmed By: Bridger Mckeon
== END 2025-05-23 11:21 | disposition home health service (06) | DRG 470 ==
LOC: ASU 05:38 → 3W 05:38